=== PATIENT | female | born 1945 | race African-American/Black ===

== ENCOUNTER 2016-05-15 01:40 | Emergency (ER) | payer OTHER, BC ==
[2016-05-15 02:08] VITALS: TEMP 98.7; BMI 31.9
--- NOTE | 2016-05-15 02:33 | PDOC ---
History of Present Illness - General History Source: Patient Exam Limitations: No Limitations - History of Present Illness Initial Comments: 05/15/16 02:42 The patient is a 70 year old female with significant past medical history of hypertension who presents to the ED with fluctuating blood pressure. Patient reports despite taking the metoprolol for 1 month and clonidine for 3 days, she became concerned that her heart rate and blood pressure has been fluctuating. The patient denies fever, chills, cough, SOB, chest pain, and palpitations. The patient denies abdominal pain, nausea, vomiting, and diarrhea. Allergies: NKDA Social History: No alcohol, tobacco, or drug use reported. Past Surgical History: None reported PCP: Dr. Sekou Segovia <Ana Guerrier - Last Filed: 05/15/16 03:16> - General History Source: Patient <KevinChilo gupta - Last Filed: 05/15/16 04:36> - General Chief Complaint: Blood Pressure Problem Stated Complaint: B/P PROBLEM Time Seen by Provider: 05/15/16 02:05 Past History <Ana Guerrier - Last Filed: 05/15/16 03:16> - Past Medical History HTN: Yes - Psycho/Social/Smoking Cessation Hx Suicidal Ideation: No Smoking Status: No Smoking History: Never smoked Have you smoked in the past 12 months: No Number of Cigarettes Smoked Daily: 0 Information on smoking cessation initiated: No Hx Alcohol Use: No Drug/Substance Use Hx: No <Chilo Mckeon - Last Filed: 05/15/16 04:36> - Past Medical History Allergies/Adverse Reactions: Allergies Allergy/AdvReac Type Severity Reaction Status Date / Time No Known Allergies Allergy Verified 05/15/16 02:02 Home Medications: Ambulatory Orders Hydrochlorothiazide 12.5MG Capsule 11/02/11 Lisinopril/Hydrochlorothiazide [Lisinopril-Hctz 20-25 mg Tab] 1 each PO Review of Systems - Review of Systems Able to Perform ROS?: Yes Comments:: 05/15/16 02:43 CONSTITUTIONAL: Absent: fever, no chills, no fatigue EYES: Absent: visual changes ENT: Absent: ear pain, no sore throat CARDIOVASCULAR: +blood pressure and heart rate fluctuating Absent: chest pain, no palpitations RESPIRATORY: Absent: cough, no SOB GI: Absent: abdominal pain, no nausea, no vomiting, no constipation, no diarrhea GENITOURINARY: Absent: dysuria, no frequency, no hematuria MUSKULOSKELETAL: Absent: back pain, no arthralgia, no myalgia SKIN: Absent: rash NEURO: Absent: headache <Ana Guerrier - Last Filed: 05/15/16 03:16> *Physical Exam - Vital Signs Last Vital Signs Temp Pulse Resp BP Pulse Ox 98.7 F 75 20 175/96 100 05/15/16 02:02 05/15/16 02:02 05/15/16 02:02 05/15/16 02:02 05/15/16 02:02 - Physical Exam Comments: 05/15/16 02:43 GENERAL: Well-appearing, well-nourished. No apparent distress. HEENT: Normocephalic, atraumatic. PERRL, EOM intact. CARDIOVASCULAR: Normal S1, S2. Regular rate and rhythm. PULMONARY: Clear to auscultation bilaterally. ABDOMEN: Soft, non-distended, non-tender. EXTREMITIES: Normal ROM in all four extremities. No gross deformities. SKIN: Warm, dry. No rash NEUROLOGICAL: No focal neurological deficits. <BhumikaylinAna horner - Last Filed: 05/15/16 03:16> - Vital Signs Last Vital Signs Temp Pulse Resp BP Pulse Ox 98.7 F 75 20 175/96 100 05/15/16 02:02 05/15/16 02:02 05/15/16 02:02 05/15/16 02:02 05/15/16 02:02 <Chilo Mckeon - Last Filed: 05/15/16 04:36> Heart Score/ECG Review - ECG Impressions Comment:: 05/15/16 03:16 Sinus bradycardia with 1st degree AV block @59bpm Left axis deviation Abnormal ECG <FareedAna - Last Filed: 05/15/16 03:16> ED Treatment Course - LABORATORY CBC & Chemistry Diagram: 05/15/16 02:51 05/15/16 02:51 <FareedAna - Last Filed: 05/15/16 03:16> - LABORATORY CBC & Chemistry Diagram: 05/15/16 02:51 05/15/16 02:51 <Chilo Mckeon - Last Filed: 05/15/16 04:36> Medical Decision Making - Medical Decision Making 05/15/16 04:34 Dr. Mckeon: The scribe's documentation has been prepared under my direction and personally reviewed by me in its entirery. I confirm that the note above accurately reflects all work, treatment, procedures, and medical decision making performed by me. Pt feels better. Pt potassium was treated. Pt to follow up with her pcp for discussion of her BP medication <Chilo Mckeon - Last Filed: 05/15/16 04:36> *DC/Admit/Observation/Transfer - Attestations Scribe Attestion: 05/15/16 02:43 Documentation prepared by Ana Guerrier, acting as certified medical coder for Chilo Mckeon MD <Ana Guerrier - Last Filed: 05/15/16 03:16> - Discharge Dispostion Admit: No <Chilo Mckeon - Last Filed: 05/15/16 04:36> Diagnosis at time of Disposition: Hypertension Qualifiers: Hypertension type: essential hypertension Qualified Code(s): I10 - Essential ( primary) hypertension - Discharge Dispostion Disposition: HOME Condition at time of disposition: Stable - Referrals Referrals: Sekou Segovia MD, MD [Primary Care Provider] - - Patient Instructions Printed Discharge Instructions: How to Monitor Your Blood Pressure at Home, DI for High Blood Pressure
[2016-05-15 03:03] LABS: BASOPHIL 0.7 % (0-2.0); EOSINOPHIL 2.6 % (0-4.5); MCH 28.8 pg (25.7-33.7); MCHC 33.1 g/dl (32.0-36.0); MEAN CELL VOLUME 87.2 fl (80-96); MEAN PLT VOLUME 9.1 fl (7.5-11.1); NEUTROPHILS 43.3 % (42.8-82.8); PLATELET COUNT 186 K/MM3 (134-434); RDW 15.2 % (11.6-15.6); WHITE BLOOD COUNT 7.7 K/mm3 (4.0-10.0)
[2016-05-15 03:24] LABS: ALBUMIN 3.7 g/dl (3.4-5.0); ANION GAP 9 (8-16); BILIRUBIN,TOTAL 0.4 mg/dL (0.2-1.0); CALCIUM 8.8 mg/dL (8.5-10.1); CO2 30 mmol/L (21-32); CREATININE 0.9 mg/dL (0.55-1.02); GLUCOSE,RANDOM 94 mg/dL (74-106); SGOT/AST 10 U/L (15-37); SGPT/ALT 17 U/L (12-78); TOT PROT 6.9 g/dl (6.4-8.2)
[2016-05-15 03:26] LABS: ALK PHOS 75 U/L (45-117); TROPONIN I < 0.02 ng/ml (0.00-0.05)
[2016-05-15] MEDS ORDERED: POTASSIUM CHLORIDE TABS 20 MEQ TABLET.ER (FP) PO ONE ×4 (03:28→04:35)
[2016-05-15 04:53] VITALS: BP 164/86; PULSE 61
--- NOTE | 2016-05-15 14:15 | EKG ---
Test Reason : Blood Pressure : / mmHG Vent. Rate : 059 BPM Atrial Rate : 059 BPM P-R Int : 222 ms QRS Dur : 092 ms QT Int : 436 ms P-R-T Axes : 049 -30 018 degrees QTc Int : 431 ms SINUS BRADYCARDIA WITH 1ST DEGREE A-V BLOCK LEFT AXIS DEVIATION ABNORMAL ECG WHEN COMPARED WITH ECG OF 16-DEC-2009 22:19, NO SIGNIFICANT CHANGE WAS FOUND Confirmed by DARINEL WINTER MD ([id number]) on 05/15/2016 2:15:00 PM Referred By: Confirmed By:DARINEL WINTER MD
== END 2016-05-15 04:51 | disposition home or self-care (01) ==
LOC: JER 01:40
DX: I10 Essential (primary) hypertension (principal); E87.6 Hypokalemia
CPT/HCPCS: 36415; 80053; 82550; 84484; 85025; 93005; 93010; 99281-25

== ENCOUNTER 2016-11-10 12:17 | Observation (INO) | payer OTHER, BC ==
[2016-11-10 12:29] VITALS: BMI 30.4
[2016-11-10] MEDS ORDERED: ASPIRIN 81 MG CHEWABLE TABLETS PO ONE (12:55)
[2016-11-10] MEDS ORDERED: ASPIRIN 81 MG CHEWABLE TABLETS ONE (13:23)
[2016-11-10 13:43] LABS: BASOPHIL 0.6 % (0-2.0); EOSINOPHIL 1.9 % (0-4.5); MCH 28.9 pg (25.7-33.7); MCHC 33.2 g/dl (32.0-36.0); MEAN CELL VOLUME 87.1 fl (80-96); MEAN PLT VOLUME 8.8 fl (7.5-11.1); NEUTROPHILS 47.6 % (42.8-82.8); PLATELET COUNT 201 K/MM3 (134-434); RDW 15.4 % (11.6-15.6); WHITE BLOOD COUNT 6.2 K/mm3 (4.0-10.0)
[2016-11-10 14:04] LABS: INR 1.02 (0.82-1.09); PROTHROMBIN TIME (PATIENT) 11.2 SEC (9.98-11.88)
[2016-11-10 14:18] LABS: ALBUMIN 3.9 g/dl (3.4-5.0); ANION GAP 8 (8-16); CO2 27 mmol/L (21-32); CREATININE 0.8 mg/dL (0.55-1.02); GLUCOSE,RANDOM 94 mg/dL (74-106); SGOT/AST 17 U/L (15-37); SGPT/ALT 19 U/L (12-78)
[2016-11-10 14:21] LABS: ALK PHOS 87 U/L (45-117); BILIRUBIN,TOTAL 0.7 mg/dL (0.2-1.0); TOT PROT 7.4 g/dl (6.4-8.2); TROPONIN I < 0.02 ng/ml (0.00-0.05)
--- NOTE | 2016-11-10 14:35 | PDOC ---
History of Present Illness - General Chief Complaint: Blood Pressure Problem Stated Complaint: HIGH BP,DIZZINESS,ARM NUMNESS Time Seen by Provider: 11/10/16 12:33 History Source: Patient Exam Limitations: No Limitations - History of Present Illness Initial Comments: 11/10/16 14:23 Patient is a 71F with history of hypertension here today complaining of chest pain and hypertension as measured at home. She reports chest pain at rest yesterday evening, which was nonpleuritic and went away at rest. The pain resolved at rest. The pain was intermittent, with several episodes getting worse each time until presentation today. The pain radiated to her jaw, arm and fingers. She denies shortness of breath, nausea, vomiting, and diaphoresis. She reports that she's currently chest pain free. Past History - Past Medical History Allergies/Adverse Reactions: Allergies Allergy/AdvReac Type Severity Reaction Status Date / Time No Known Allergies Allergy Verified 11/10/16 12:22 Home Medications: Ambulatory Orders Lisinopril [Prinivil] 40 mg PO DAILY 05/15/16 Metoprolol Succinate [Toprol Xl -] 200 mg PO DAILY 05/15/16 Nifedipine [Procardia Xl] 30 mg PO DAILY 11/10/16 Omeprazole Magnesium [Prilosec] 40 mg PO DAILY 11/10/16 Potassium Chloride 10 meq PO DAILY 11/10/16 Spironolactone 25 mg PO DAILY 11/10/16 HTN: Yes - Psycho/Social/Smoking Cessation Hx Suicidal Ideation: No Smoking Status: No Smoking History: Never smoked Have you smoked in the past 12 months: No Number of Cigarettes Smoked Daily: 0 Hx Alcohol Use: No Drug/Substance Use Hx: No Review of Systems - Review of Systems Constitutional: No: Chills, Fever HEENTM: Yes: Mouth Pain. No: Eye Pain, Blurred Vision Respiratory: No: Cough, Orthopnea, Shortness of Breath Cardiac (ROS): Yes: Chest Pain. No: Edema, Irregular Heart Rate ABD/GI: No: Constipated, Diarrhea, Nausea, Vomiting : No: Burning, Dysuria Musculoskeletal: No: Back Pain, Muscle Pain Neurological: Yes: Numbness (numbness in left hand with pain). No: Headache Hematologic/Lymphatic: No: Anemia, Blood Clots *Physical Exam - Vital Signs Last Vital Signs Temp Pulse Resp BP Pulse Ox 98.1 F 68 19 184/101 100 11/10/16 12:22 11/10/16 12:22 11/10/16 12:22 11/10/16 12:22 11/10/16 12:22 - Physical Exam Comments: 11/10/16 16:29 Gen: Well nourished, in no acute distress Lungs: Clear to auscultation bilaterally, normal work of breathing CV: Regular rate and rhythm, no murmurs rubs or gallops Ext: 2+ pulses in both lower extremities, no pitting edema Neuro: Alert, oriented, no focal neuro deficits Abd: Soft, nontender, normal bowel sounds HEENT: Atraumatic, normocephalic Heart Score/ECG Review - History History: Highly suspicious - Electrocardiogram EKG: Normal - Age Age: >/= 65 - Risk Factors Risk Factors Heart Score: Yes Hx Hypertension, Yes Hx Obesity Based on the list above the patient has:: 1-2 risk factors - Troponin Troponin: </= normal limit - Score Heart Score - Total: 5 - ECG Intrepretation Comment:: 11/10/16 16:31 Regular rate, regular rhythm, normal axis, no ST elevation, no T wave abnormalities ED Treatment Course - LABORATORY CBC & Chemistry Diagram: 11/10/16 13:33 11/10/16 13:33 - ADDITIONAL ORDERS Additional order review: Laboratory Results 11/10/16 11/10/16 13:33 13:33 INR 1.02 Sodium 139 Potassium 4.0 D Chloride 104 Carbon Dioxide 27 Anion Gap 8 BUN 25 H D Creatinine 0.8 Creat Clearance w eGFR > 60 Random Glucose 94 Calcium 10.0 Total Bilirubin 0.7 D AST 17 D ALT 19 Alkaline Phosphatase 87 Creatine Kinase 83 Troponin I < 0.02 Total Protein 7.4 Albumin 3.9 - RADIOLOGY Radiology Studies Ordered: Category Date Time Status CHEST X-RAY PORTABLE* [RAD] Stat Radiology 11/10/16 12:55 Completed - Medications Given in the ED: ED Medications Discontinued Medications Generic Name Dose Route Start Last Admin Trade Name Freq PRN Reason Stop Dose Admin Aspirin 162 mg 11/10/16 12:55 11/10/16 13:24 Asa - PO 11/10/16 12:56 162 mg ONCE ONE Administration Medical Decision Making - Medical Decision Making 11/10/16 16:31 71F with history of hypertension here today complaining of high blood pressure and chest pain. Hypertensive to 185 systolic, but otherwise stable and normal. Differential includes, but is not limited to: ACS, unstable angina, and pneumothorax. Will order CBC, CMP, CXR, and troponin. Labs within normal limits, chest x-ray clear. Story is concerning for possible ischemic event. With risk factors and age HEART score is 5. PCP consulted for admission. 11/10/16 18:41 PCP admits to hospitalist service. Admitted to medicine. *DC/Admit/Observation/Transfer Diagnosis at time of Disposition: Chest pain Qualifiers: Chest pain type: unspecified Qualified Code(s): R07.9 - Chest pain, unspecified - Discharge Dispostion Condition at time of disposition: Stable Admit: Yes - Referrals - Attestations Physician Attestion: 11/10/16 17:44 I, Dr. Sekou Daniels, attest that this document has been prepared under my direction and personally reviewed by me in its entirety. I further attest, that it accurately reflects all work, treatment, procedures and medical decision -making performed by me.
[2016-11-10] MEDS ORDERED: NITROGLYCERIN SUBLINGUAL 1/150 0.4 MG TAB SL ONE (15:12)
--- NOTE | 2016-11-10 18:02 | PDOC ---
Attending Attestation - Resident Resident Name: Sekou Daniels - ED Attending Attestation I have performed the following: I have examined & evaluated the patient, The case was reviewed & discussed with the resident, I agree w/resident's findings & plan, Exceptions are as noted <Matt Bhandari - Last Filed: 11/10/16 18:01> - HPI HPI: 11/10/16 18:02 The patient is a 71 year old female with no PMHx who presents to the ED with chest pain that radiates to her tongue, shoulder and jaw. She reports no current chest pain, but reports tongue pain. She denies SOB. She measured her BP today and she states it was above 240, so she came to the ED. On arrival, it was 184/101. - Physicial Exam PE: 11/10/16 18:02 I agree with the residents physical exam. <Ariana Lemus - Last Filed: 11/10/16 18:02>
[2016-11-10] MEDS ORDERED: LISINOPRIL 20 MG TABLET (FP) PO ONE (18:16)
--- NOTE | 2016-11-10 18:26 | HP ---
CHIEF COMPLAINT:Chest pain PCP:Sekou Segovia HISTORY OF PRESENT ILLNESS: 71F with history of HTN, poorly controlled, presents to the ED with chest pain which happened last night before bed. Per ther patient she was about to go to bed and she felt a pressure like pain on the left which went to her left shoulder and left neck. When she woke up she was no longer symptomatic. When she presented to the ED she was also not in pain any longer. She states that her BP was high at home SBP was "200 something" which prompted her to come to the ED. She states the pain is similar to when she gets "gassy pains". She states she had an exerc ise stress test where she ran on treadmill 8 years ago and it was negative. She denies a cardiac work up ever since. She Denies nausea vomiting fevers chills shortness of breath GI or urinary symptoms. She reports frequent belching and 2 days ago states she had a "fishy taste" in her mouth which has since resolved. SHe states she was recently started on procardia a few days ago but never started it because her blood pressure was always low and in the 60's-80's. She was also started on a "potassium pill" because her potassium was too low. ER course was notable for: (1)Labs CXR (2)Nifedepine (3) Aspirin Recent Travel:Denies PAST MEDICAL HISTORY: HTN GERD chronic hypokalemia PAST SURGICAL HISTORY:Denies Social History: Smoking:Denies Alcohol:Denies Drugs: Denies Family History:Denies Allergies No Known Allergies Allergy (Verified 11/10/16 12:22) HOME MEDICATIONS: Home Medications Medication Instructions Recorded Lisinopril [Prinivil] 40 mg PO DAILY 05/15/16 Metoprolol Succinate [Toprol Xl -] 200 mg PO DAILY 05/15/16 Nifedipine [Procardia Xl] 30 mg PO DAILY 11/10/16 Omeprazole Magnesium [Prilosec] 40 mg PO DAILY 11/10/16 Potassium Chloride 10 meq PO DAILY 11/10/16 Spironolactone 25 mg PO DAILY 11/10/16 REVIEW OF SYSTEMS CONSTITUTIONAL: Absent: fever, chills, diaphoresis, generalized weakness, malaise, loss of appetite, weight change HEENT: Absent: rhinorrhea, nasal congestion, throat pain, throat swelling, difficulty swallowing, mouth swelling, ear pain, eye pain, visual changes Present: Fishy taste in mouth CARDIOVASCULAR: Absent: syncope, palpitations, irregular heart rate, lightheadedness, peripheral edema Present: Chest Pain RESPIRATORY: Absent: cough, shortness of breath, dyspnea with exertion, orthopnea, wheezing, stridor, hemoptysis GASTROINTESTINAL: Absent: abdominal pain, abdominal distension, nausea, vomiting, diarrhea, constipation, melena, hematochezia GENITOURINARY: Absent: dysuria, frequency, urgency, hesitancy, hematuria, flank pain, genital pain MUSCULOSKELETAL: Absent: myalgia, arthralgia, joint swelling, back pain, neck pain SKIN: Absent: rash, itching, pallor HEMATOLOGIC/IMMUNOLOGIC: Absent: easy bleeding, easy bruising, lymphadenopathy, frequent infections ENDOCRINE: Absent: unexplained weight gain, unexplained weight loss, heat intolerance, cold intolerance NEUROLOGIC: Absent: headache, focal weakness or paresthesias, dizziness, unsteady gait, seizure, mental status changes, bladder or bowel incontinence Present: occasional numbness of tongue PSYCHIATRIC: Absent: anxiety, depression, suicidal or homicidal ideation, hallucinations. PHYSICAL EXAMINATION Vital Signs - 24 hr 11/10/16 18:03 Pulse Rate [ 63 Radial] Respiratory 18 Rate Blood Pressure 172/103 [Right Arm] O2 Sat by Pulse 100 Oximetry (%) GENERAL: Awake, alert, and fully oriented, in no acute distress. HEAD: Normal with no signs of trauma. EYES: Pupils equal, round and reactive to light, extraocular movements intact, sclera anicteric, conjunctiva clear. No lid lag. EARS, NOSE, THROAT: Moist mucous membranes. NECK: Normal range of motion, supple without JVD LUNGS: Breath sounds equal, clear to auscultation bilaterally. No wheezes, and no crackles. No accessory muscle use. HEART: Regular rate and rhythm, normal S1 and S2 without murmur, rub or gallop. ABDOMEN: Soft, nontender, not distended, normoactive bowel sounds, no guarding, no rebound MUSCULOSKELETAL: No CVA tenderness. UPPER EXTREMITIES: warm, well-perfused. No peripheral edema. LOWER EXTREMITIES: 2warm, well-perfused. No calf tenderness. No peripheral edema. NEUROLOGICAL: Cranial nerves II-XII intact. Normal speech. PSYCHIATRIC: Cooperative. Good eye contact. Appropriate mood and affect. SKIN: Warm, dry, normal turgor EKG: NSR CXR: Clear HEART score: 5 ASSESSMENT/PLAN: 71F with history of HTN and GERD presents to the ED with chest pain admitted for cardiac work up and to rule out ACS. Chest pain-atypical - R/O ACS low suspicion for ACS given history and symtpoms. possibly GERD vs hypertensive emergency Admit to telemetry cardiology consult ECHO Trend troponins so far first set negative PPI already received aspirin in ED will do TFTs Lipid panel may need statin may need to be started on aspirin hypertensive urgency vs emergency: could be emergency if chest pain is secondary to elevated BP admit to telemetry for continuos cardiac monitoring given nitro in ED will give STAT dose of lisinopril 40mg restart home meds metoprolol nifedepine lisinopril and spironolactone adjust meds prior to discharge PRN Chronic hypokalemia: Continue potassium supplementation PO Trend potassium GERD: could be the cause of her symptoms Change prilosec to protonix PPx: Heparin subq/SCDs/early ambulation protonix PO no PT consult needed at this time FEN: no IVF needed no electrolyte issues continue potassium supplementation and trend sodium controlled diet Case discussed with attending. Visit type - Emergency Visit Emergency Visit: Yes ED Registration Date: 11/10/16 Care time: The patient presented to the Emergency Department on the above date and was hospitalized for further evaluation of their emergent condition. - New Patient This patient is new to me today: Yes Date on this admission: 11/10/16 - Critical Care Critical Care patient: No
[2016-11-10] MEDS ORDERED: LISINOPRIL 20 MG TABLET (FP) ONE (18:41)
[2016-11-10] MEDS ORDERED: PANTOPRAZOLE 40 MG TABLET (FP) ONE (18:41)
--- NOTE | 2016-11-10 18:43 | PN ---
Teaching Attending Note Name of Resident: Huey Morris ATTENDING PHYSICIAN STATEMENT I saw and evaluated the patient. I reviewed the resident's note and discussed the case with the resident. I agree with the resident's findings and plan as documented. SUBJECTIVE:71yo F came to the ER for elevated BP. states she takes her BP daily and it was systolic 200's. pt had no symptoms at that time. she states last night when she was going to bed had some L sided CP, heavy pressure feeling radiating to the L shoulder. pain was bearable and fell asleep and woke up asymptomatic. reports frequent belching this AM and often waking in the AM with "fish" like taste in her mouth. pt was recently started on procardia by her primary but states she never took it because her home readings of her BP were in the 90's. states she had a treadmill stress test 9 years ago for routine screening which was negative for her. denies smoking history. denies family hx of cardiac disease or sudden OBJECTIVE: Last Vital Signs Temp Pulse Resp BP Pulse Ox 98.1 F 63 18 172/103 100 11/10/16 12:22 11/10/16 18:03 11/10/16 18:03 11/10/16 18:03 11/10/16 18:03 General NAD CV S1 S2 RRR no murmur/rub/gallop no chest wall tenderness Lungs CTA B/L no wheezing/rales/rhonchi Abdomen soft NT/ND Extremities no pedal edema ASSESSMENT AND PLAN: 71yo F with PMH HTN, GERD and chronic hypokalemia who presented to the ER with HTN urgency 1. HTN urgency- tele admission. continuous cardiac cath lab technologist. will give lisinopril 40mg now and re-start home medications. check echo 2. Atypical CP- likely GERD like symptoms, however has high heart score. first set of cardiac markers negative. will trend Q6H. start asa. (already received 325mg in ER will cont 81mg tomorrow). cardio consult. will likely benefit from stress test but can likely be done as outpatient. switch prilosec to protonix 3. Chronic hypokalemia- normal at this time. cont chronic supplementation 4. DVT ppx- EAM
[2016-11-10] MEDS: PANTOPRAZOLE 40 MG TABLET (FP) PO SCH (18:51)
[2016-11-10 20:05] LABS: TROPONIN I < 0.02 ng/ml (0.00-0.05)
[2016-11-10 20:45] LABS: CHOLESTEROL 197 mg/dL (50-200); LDL CHOLESTEROL (ONLY SJRH) 98 mg/dL (5-100)
[2016-11-10] MEDS: HEPARIN NA (PORCINE) 5,000 UNITS/ML 1ML VIAL SQ SCH (23:06)
[2016-11-10] MEDS: NIFEdipine E.R. 30 MG TABLET (FP) PO SCH (23:06)
[2016-11-11 02:27] LABS: TROPONIN I < 0.02 ng/ml (0.00-0.05)
[2016-11-11] MEDS: HEPARIN NA (PORCINE) 5,000 UNITS/ML 1ML VIAL SQ SCH ×2 (06:56→13:20)
[2016-11-11 08:04] LABS: MCH 29.6 pg (25.7-33.7); MCHC 34.2 g/dl (32.0-36.0); MEAN CELL VOLUME 86.6 fl (80-96); MEAN PLT VOLUME 8.7 fl (7.5-11.1); PLATELET COUNT 184 K/MM3 (134-434); RDW 15.5 % (11.6-15.6); WHITE BLOOD COUNT 6.9 K/mm3 (4.0-10.0)
[2016-11-11 08:09] LABS: ANION GAP 7 (8-16); CALCIUM 9.4 mg/dL (8.5-10.1); CO2 26 mmol/L (21-32); CREATININE 0.6 mg/dL (0.55-1.02); GLUCOSE,RANDOM 82 mg/dL (74-106); MAGNESIUM 1.9 mg/dL (1.8-2.4); PHOSPHOROUS 2.8 mg/dL (2.5-4.9)
[2016-11-11] MEDS: PANTOPRAZOLE 40 MG TABLET (FP) PO SCH (09:07)
[2016-11-11] MEDS ORDERED: METOPROLOL SUCCINATE 100 MG TAB.SR.24H (FP) PO SCH (10:00)
[2016-11-11] MEDS ORDERED: NIFEdipine E.R. 30 MG TABLET (FP) PO SCH (10:00)
[2016-11-11] MEDS ORDERED: POTASSIUM CHLORIDE TABS 10 MEQ TABLET.ER (FP) PO SCH (10:00)
[2016-11-11] MEDS ORDERED: SPIRONOLACTONE 25 MG TABLET (FP) PO SCH (10:00)
[2016-11-11] MEDS ORDERED: LISINOPRIL 20 MG TABLET (FP) PO SCH (10:00)
[2016-11-11] MEDS ORDERED: ASPIRIN COATED 81 MG TABLET.EC PO SCH (10:00)
--- NOTE | 2016-11-11 11:06 | CON.CARD ---
Consult Consult Specialty:: Cardiology Referred by:: Hospitalist service Reason for Consultation:: Cardiac evaluation - History of Present Illness Chief Complaint: Chest pain History of Present Illness: Patient is a 71 year old female with underlying history of hypertension who presents with left sided chest discomfort. She sees Dr. Sekou Segovia (PMD) who prescribed Protonix last week, but she did not take it due to low blood pressure. She states that her blood pressure ashley up to 200's along with chest discomfort also radiating to arm and jaw. Initial cardiac enzyme was negative. She was given her medications and now has normal pressure. She remains asymptomatic at the moment. She denies shortness of breath or palpitations. She denies paroxysmal nocturnal dyspnea or orthopnea. She denies fever or chills. She denies headache or lightheadedness at this time. Cardiology consultation was called for further evaluation. - History Source History Provided By: Patient, Medical Record Limitations to Obtaining History: No Limitations - Past Medical History Cardio/Vascular: Yes: HTN - Alcohol/Substance Use Hx Alcohol Use: No History of Substance Use: reports: None - Smoking History Smoking history: Never smoked Have you smoked in the past 12 months: No Aproximately how many cigarettes per day: 0 Home Medications - Allergies Allergies/Adverse Reactions: Allergies Allergy/AdvReac Type Severity Reaction Status Date / Time No Known Allergies Allergy Verified 11/10/16 12:22 - Home Medications Home Medications: Ambulatory Orders Lisinopril [Prinivil] 40 mg PO DAILY 05/15/16 Metoprolol Succinate [Toprol Xl -] 200 mg PO DAILY 05/15/16 Nifedipine [Procardia Xl] 30 mg PO DAILY 11/10/16 Omeprazole Magnesium [Prilosec] 40 mg PO DAILY 11/10/16 Potassium Chloride 10 meq PO DAILY 11/10/16 Spironolactone 25 mg PO DAILY 11/10/16 Family Disease History - Family Disease History Family Disease History: Other: Mother (stroke) Review of Systems - Review of Systems Constitutional: denies: Chills, Fever Cardiovascular: reports: Chest Pain. denies: Palpitations, Shortness of Breath Respiratory: denies: Cough, Hemoptysis, Orthopnea, PND, SOB, SOB on Exertion Gastrointestinal: denies: Abdominal Pain, Constipation, Diarrhea, Melena, Nausea , Rectal Bleeding, Vomiting Neurological: reports: No Symptoms. denies: Dizziness, Headache, Seizure, Syncope Vital Signs: Vital Signs Temperature 98.2 F 11/11/16 09:00 Pulse Rate 66 11/11/16 09:00 Respiratory Rate 14 11/11/16 09:00 Blood Pressure 130/72 11/11/16 09:00 O2 Sat by Pulse Oximetry (%) 96 11/10/16 23:00 HENT: Yes: Atraumatic Neck: Yes: Supple Respiratory: Yes: Regular, CTA Bilaterally Gastrointestinal: Yes: Normal Bowel Sounds, Soft. No: Tenderness Cardiovascular: Yes: Regular Rate and Rhythm JVD: No Carotid Bruit: No PMI: Non-Displaced Heart Sounds: Yes: S1, S2 Murmur: No: Systolic Murmur, Diastolic Murmur Edema: No - Other Data Labs, Other Data: CBC, BMP 11/11/16 05:35 11/11/16 05:35 INR, PTT INR 1.02 (0.82-1.09) 11/10/16 13:33 Troponin, BNP Abnormal Lab Results 11/10/16 11/10/16 11/10/16 13:33 13:33 20:22 Monocytes % 11.9 H Chloride Anion Gap BUN 25 H D HDL Cholesterol 86 H 11/11/16 05:35 Monocytes % Chloride 108 H Anion Gap 7 L BUN HDL Cholesterol Laboratory Results - last 24 hr 11/10/16 11/10/16 11/10/16 13:33 13:33 13:33 WBC 6.2 RBC 4.39 Hgb 12.7 Hct 38.2 MCV 87.1 MCH 28.9 MCHC 33.2 RDW 15.4 Plt Count 201 MPV 8.8 Neutrophils % 47.6 Lymphocytes % 38.0 Monocytes % 11.9 H Eosinophils % 1.9 Basophils % 0.6 INR 1.02 Sodium 139 Potassium 4.0 D Chloride 104 Carbon Dioxide 27 Anion Gap 8 BUN 25 H D Creatinine 0.8 Creat Clearance w eGFR > 60 Random Glucose 94 Calcium 10.0 Phosphorus Magnesium Total Bilirubin 0.7 D AST 17 D ALT 19 Alkaline Phosphatase 87 Creatine Kinase 83 Troponin I < 0.02 Total Protein 7.4 Albumin 3.9 Triglycerides Cholesterol Total LDL Cholesterol HDL Cholesterol TSH 11/10/16 11/10/16 11/10/16 19:21 19:21 20:22 WBC RBC Hgb Hct MCV MCH MCHC RDW Plt Count MPV Neutrophils % Lymphocytes % Monocytes % Eosinophils % Basophils % INR Sodium Potassium Chloride Carbon Dioxide Anion Gap BUN Creatinine Creat Clearance w eGFR Random Glucose Calcium Phosphorus Magnesium Total Bilirubin AST ALT Alkaline Phosphatase Creatine Kinase 72 Troponin I < 0.02 Total Protein Albumin Triglycerides 43 Cholesterol 197 Total LDL Cholesterol 98 HDL Cholesterol 86 H TSH 0.37 11/11/16 11/11/16 11/11/16 01:20 05:35 05:35 WBC 6.9 RBC 4.03 Hgb 11.9 Hct 35.0 MCV 86.6 MCH 29.6 MCHC 34.2 RDW 15.5 Plt Count 184 MPV 8.7 Neutrophils % Lymphocytes % Monocytes % Eosinophils % Basophils % INR Sodium 141 Potassium 3.8 Chloride 108 H Carbon Dioxide 26 Anion Gap 7 L BUN 15 D Creatinine 0.6 D Creat Clearance w eGFR Random Glucose 82 Calcium 9.4 Phosphorus 2.8 Magnesium 1.9 Total Bilirubin AST ALT Alkaline Phosphatase Creatine Kinase 70 Troponin I < 0.02 Total Protein Albumin Triglycerides Cholesterol Total LDL Cholesterol HDL Cholesterol TSH 11/10/16 11/11/16 19:21 01:20 Troponin I < 0.02 < 0.02 Normal sinus rhythm with no ST-T abnormality Echo: Pending Imaging - Results Chest X-ray: Report Reviewed (Unremarkable) EKG: Report Reviewed Problem List - Problems (1) Chest pain Code(s): R07.9 - CHEST PAIN, UNSPECIFIED Qualifiers: Chest pain type: unspecified Qualified Code(s): R07.9 - Chest pain, unspecified (2) Hypertension Code(s): I10 - ESSENTIAL (PRIMARY) HYPERTENSION Qualifiers: Hypertension type: essential hypertension Qualified Code(s): I10 - Essential (primary) hypertension Assessment/Plan 1. Chest pain syndrome - atypical with episode of hypertensive urgency 2. Hypertension PLAN: 1. Serial cardiac enzymes are negative times 2 sets 2. Transthoracic echocardiography to assess LV/RV and valvular function 3. Continue current cardiac medications including Metoprolol ER, Procardia XL and Lisinopril 4. Continue ASA 5. Continue Spironolactone until further instruction 6. Patient probably will need stress testing, perhaps stress echocardiography, but can be done as outpatient. Further plans are to follow Oscar Madrigal MD
--- NOTE | 2016-11-11 11:55 | PN ---
Teaching Attending Note Name of Resident: Artur Griffith ATTENDING PHYSICIAN STATEMENT I saw and evaluated the patient. I reviewed the resident's note and discussed the case with the resident. I agree with the resident's findings and plan as documented. SUBJECTIVE:currently asymptomatic. no recurrent CP. denies SOB,fver, chills, CORONADO , blurred vision OBJECTIVE: Last Vital Signs Temp Pulse Resp BP Pulse Ox 98.2 F 66 14 130/72 96 11/11/16 09:00 11/11/16 09:00 11/11/16 09:00 11/11/16 09:00 11/11/16 09:00 General NAD CV S1 S2 RRR no murmur/rub/gallop no chest wall tenderness Lungs CTA B/L no wheezing/rales/rhonchi Abdomen soft NT/ND Extremities no pedal edema ASSESSMENT AND PLAN: 71yo F with PMH HTN, GERD and chronic hypokalemia who presented to the ER with HTN urgency 1. HTN urgency-improved. now on home medications. echo pending. counseled on importance on medication compliance 2. Atypical CP- likely GERD like symptoms, cardiac enzymes neg x3. 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 started on asa this admission. cardio consult. plan for stress test as outpatient. cont ppi 3. Chronic hypokalemia- normal at this time. cont chronic supplementation 4. DVT ppx- EAM 5. d/c home today pending results of echo
--- NOTE | 2016-11-11 12:11 | PN ---
Physical Exam: SUBJECTIVE: Patient seen and examined. Said she feels much better than yesterday. She said the bad taste in her mouth went away. Denies chest pain, SOB , headaches, dizziness. OBJECTIVE: Vital Signs Period Temp Pulse Resp BP Sys/Wheeler Pulse Ox Last 24 Hr 98.2 F-98.4 F 61-66 14-20 130-185/72-104 96-100 GENERAL: The patient is awake, alert, and fully oriented, in no acute distress. HEAD: Normal with no signs of trauma. EYES: PERRL, extraocular movements intact, sclera anicteric, conjunctiva clear. No ptosis. LUNGS: Breath sounds equal, clear to auscultation bilaterally, no wheezes, no crackles, no accessory muscle use. HEART: Regular rate and rhythm, S1, S2 without murmur, rub or gallop. ABDOMEN: Soft, nontender, nondistended, normoactive bowel sounds, no guarding, no rebound, no hepatosplenomegaly, no masses. EXTREMITIES: 2+ right radial pulse, warm, well-perfused, no edema. PSYCH: Normal mood, normal affect. SKIN: Warm, dry, normal turgor, no rashes or lesions noted Laboratory Results - last 24 hr 11/10/16 11/10/16 11/10/16 19:21 19:21 20:22 WBC RBC Hgb Hct MCV MCH MCHC RDW Plt Count MPV Sodium Potassium Chloride Carbon Dioxide Anion Gap BUN Creatinine Random Glucose Calcium Phosphorus Magnesium Creatine Kinase 72 Troponin I < 0.02 Triglycerides 43 Cholesterol 197 Total LDL Cholesterol 98 HDL Cholesterol 86 H TSH 0.37 11/11/16 11/11/16 11/11/16 01:20 05:35 05:35 WBC 6.9 RBC 4.03 Hgb 11.9 Hct 35.0 MCV 86.6 MCH 29.6 MCHC 34.2 RDW 15.5 Plt Count 184 MPV 8.7 Sodium 141 Potassium 3.8 Chloride 108 H Carbon Dioxide 26 Anion Gap 7 L BUN 15 D Creatinine 0.6 D Random Glucose 82 Calcium 9.4 Phosphorus 2.8 Magnesium 1.9 Creatine Kinase 70 Troponin I < 0.02 Triglycerides Cholesterol Total LDL Cholesterol HDL Cholesterol TSH Active Medications Generic Name Dose Route Start Last Admin Trade Name Freq PRN Reason Stop Dose Admin Aspirin 81 mg 11/11/16 10:00 11/11/16 09:07 Ecotrin - PO 81 mg DAILY JOHN Administration Heparin Sodium (Porcine) 5,000 unit 11/10/16 22:00 11/11/16 06:56 Heparin - SQ Not Given TID JOHN Lisinopril 40 mg 11/11/16 10:00 11/11/16 09:07 Prinivil PO 40 mg DAILY JOHN Administration Metoprolol Succinate 200 mg 11/11/16 10:00 11/11/16 09:06 Toprol Xl - PO 200 mg DAILY JOHN Administration Nifedipine 30 mg 11/10/16 23:00 11/10/16 23:06 Procardia Xl - PO 30 mg DAILY JOHN Administration Pantoprazole Sodium 40 mg 11/10/16 18:30 11/11/16 09:07 Protonix - PO 40 mg DAILY JOHN Administration Potassium Chloride 10 meq 11/11/16 10:00 11/11/16 09:07 K-Dur - PO Not Given DAILY JOHN Spironolactone 25 mg 11/11/16 10:00 11/11/16 09:07 Aldactone - PO 25 mg DAILY JOHN Administration ASSESSMENT/PLAN: 76 year old F with a PMH of HTN, GERD, and chronic hypokalemia was admitted to telemetry for hypertensive urgency. Plan: #Hyptertensive Urgency -resolved Continue: Aldactone 25mg PO daily Lisinopril 40mg daily Nifedipine 30mg daily Metoprolol succinate 200mg daily Cardiology consult # Atypical Chest Pain Low suspicion for ACS Troponin x 3 negative Thyroid function and lipid profile both WNL Echo Results pending Continue Aspirin 81mg PO As per cardiology recommend stress testing outpatient. PPI started for possible GERD as cause for atypical chest pain. #Chronic Hypokalemia Continue Potassium chloride 10meq daily #GERD -Protonix 40mg PO daily #Dvt prophylaxis Continue Heparin 5000 sq TID Visit type - Emergency Visit Emergency Visit: No - New Patient This patient is new to me today: Yes Date on this admission: 11/11/16 - Critical Care Critical Care patient: No
[2016-11-11] MEDS: NIFEdipine E.R. 30 MG TABLET (FP) PO SCH (16:46)
--- NOTE | 2016-11-11 17:15 | DS ---
Physical Exam: SUBJECTIVE: Patient seen and examined. Said she feels much better than yesterday. She said the bad taste in her mouth went away. Denies chest pain, SOB , headaches, dizziness. OBJECTIVE: Vital Signs Period Temp Pulse Resp BP Sys/Wheeler Pulse Ox Last 24 Hr 98.2 F-98.4 F 61-66 14-20 130-185/72-104 96-100 Selected Entries 11/10/16 11/10/16 11/10/16 12:22 15:14 18:03 Blood Pressure 184/101 Blood Pressure 185/86 172/103 [Right Arm] 11/10/16 11/10/16 11/11/16 20:01 22:00 02:00 Blood Pressure 185/100 145/85 Blood Pressure 171/98 [Right Arm] 11/11/16 11/11/16 11/11/16 05:54 09:00 14:00 Blood Pressure 138/76 130/72 112/70 Blood Pressure [Right Arm] GENERAL: The patient is awake, alert, and fully oriented, in no acute distress. HEAD: Normal with no signs of trauma. EYES: PERRL, extraocular movements intact, sclera anicteric, conjunctiva clear. No ptosis. LUNGS: Breath sounds equal, clear to auscultation bilaterally, no wheezes, no crackles, no accessory muscle use. HEART: Regular rate and rhythm, S1, S2 without murmur, rub or gallop. ABDOMEN: Soft, nontender, nondistended, normoactive bowel sounds, no guarding, no rebound, no hepatosplenomegaly, no masses. EXTREMITIES: 2+ right radial pulse, warm, well-perfused, no edema. PSYCH: Normal mood, normal affect. SKIN: Warm, dry, normal turgor, no rashes or lesions noted LABS Laboratory Tests 11/10/16 11/10/16 11/10/16 13:33 13:33 13:33 WBC 6.2 Hgb 12.7 Hct 38.2 Plt Count 201 INR 1.02 Sodium 139 Potassium 4.0 D BUN 25 H D Creatinine 0.8 Phosphorus Magnesium Total Bilirubin 0.7 D AST 17 D ALT 19 Alkaline Phosphatase 87 Troponin I < 0.02 Triglycerides Cholesterol Total LDL Cholesterol HDL Cholesterol TSH 11/10/16 11/10/16 11/10/16 19:21 19:21 20:22 WBC Hgb Hct Plt Count INR Sodium Potassium BUN Creatinine Phosphorus Magnesium Total Bilirubin AST ALT Alkaline Phosphatase Troponin I < 0.02 Triglycerides 43 Cholesterol 197 Total LDL Cholesterol 98 HDL Cholesterol 86 H TSH 0.37 11/11/16 11/11/16 11/11/16 01:20 05:35 05:35 WBC 6.9 Hgb 11.9 Hct 35.0 Plt Count 184 INR Sodium 141 Potassium 3.8 BUN 15 D Creatinine 0.6 D Phosphorus 2.8 Magnesium 1.9 Total Bilirubin AST ALT Alkaline Phosphatase Troponin I < 0.02 Triglycerides Cholesterol Total LDL Cholesterol HDL Cholesterol TSH HOSPITAL COURSE: Date of Admission:11/11/16 Date of Discharge: 11/11/16 76 year old F with a PMH of HTN, GERD, and chronic hypokalemia was admitted to telemetry for hypertensive urgency. Troponins x 3 were negative. Blood pressure improved. Patient was restarted on home medications. Echo was completed: -No pericardial effusion -The right ventricular is normal size -Mild aortic root dilatation -There is moderate to severe tricuspid regurgitation -Moderate aortic regurgitation Patient was recommended to start Aspirin 81mg at home. Minutes to complete discharge: 30 Discharge Summary Reason For Visit: CHEST PAIN Current Active Problems Chest pain (Acute) Condition: Good - Instructions Diet, Activity, Other Instructions: You were admitted to the hospital for chest pain and high blood pressure. Your blood pressure improved during this hospitalization. Please take your home medications as prescribed. We recommend you follow-up with your primary care physician Dr. Segovia and a final expense agent, Dr. Madrigal in a week to review your medications and hospitalization. You should discuss having a stress test to evaluate your heart. Please start taking aspirin 81mg 1 tablet daily. If you have any chest pain, difficulty breathing or any new symptoms please return to the hospital. Referrals: Oscar Madrigal MD [Staff Physician] - Sekou Segovia MD, MD [Primary Care Provider] - Disposition: HOME - Home Medications Comprehensive Discharge Medication List: Ambulatory Orders Lisinopril [Prinivil] 40 mg PO DAILY 05/15/16 Metoprolol Succinate [Toprol XL -] 200 mg PO DAILY 05/15/16 Nifedipine [Procardia Xl] 30 mg PO DAILY 11/10/16 Omeprazole Magnesium [Prilosec] 40 mg PO DAILY 11/10/16 Potassium Chloride 10 meq PO DAILY 11/10/16 Spironolactone 25 mg PO DAILY 11/10/16 This patient is new to me today: Yes Date on this admission: 11/11/16 Emergency Visit: No Critical Care patient: No - Discharge Referral Referred to [facility] No
--- NOTE | 2016-11-11 20:51 | EKG ---
Test Reason : Blood Pressure : / mmHG Vent. Rate : 060 BPM Atrial Rate : 060 BPM P-R Int : 202 ms QRS Dur : 086 ms QT Int : 404 ms P-R-T Axes : 034 -27 001 degrees QTc Int : 404 ms NORMAL SINUS RHYTHM VOLTAGE CRITERIA FOR LEFT VENTRICULAR HYPERTROPHY ABNORMAL ECG WHEN COMPARED WITH ECG OF 15-MAY-2016 02:49, NO SIGNIFICANT CHANGE WAS FOUND REPEAT EKG IF CLINICALLY INDICATED Confirmed by ANA MURCIA MD ([id number] on 11/11/2016 8:51:07 PM Referred By: Confirmed By:ANA MURCIA MD
[2016-11-11 21:50] VITALS: BP 120/77; PULSE 64; TEMP 98
== END 2016-11-11 18:27 | disposition home or self-care (01) ==
LOC: JER 12:17 → OBSVTOIN 17:45 → INTOOBSV 17:45 → JERBED 17:45 → UNDOADMOB 17:45 → JERBED 20:17 → J4W 20:17 → JERBED 11-11 12:50
PROVIDERS: ADMIT Internal Medicine; ATTEND Internal Medicine
DX: R07.9 Chest pain, unspecified (principal); I10 Essential (primary) hypertension; E87.6 Hypokalemia; K21.9 Gastro-esophageal reflux disease without esophagitis
CPT/HCPCS: 36415; 71010-TC; 80048; 80053; 80061; 82550; 83721; 83735; 84100; 84443; 84484; 85025; 85027; 85610; 93005; 93010; 93306-TC; 99285-25; G0378

== ENCOUNTER 2020-08-15 04:46 | Day surgery (SDC) | payer OTHER ==
[2020-08-13 11:46] VITALS: BMI 30.4
[~2020-08-15 04:46] MED LIST: ACETAMINOPHEN 325 MG TABLET (FP) PO PRN; BSS (NA/CA/MG/K) BALANCED SALT SOLUTION OPHTH SOLN 15 ML BOTTLE OS ONE; CHONDROITIN SU A/HYALUR SOD 1 KIT IO ONE; CYCLOPENTOLATE HCL 1% OPHTH SOLN 2 ML BOTTLE OP SCH; EPINEPHrine/PF 1 MG/1 ML (1:1,000) AMPULE SQ ONE; LIDOCAINE HCL 1% PRESERVATIVE FREE - 30ML VIAL IO ONE; POVIDONE-IODINE 5% OPHTHALMIC PREP 30 ML SOLUTION OS ONE; TETRACAINE 0.5% OPHTH SOLN 2 ML BOTTLE TP ONE
[2020-08-15] MEDS ORDERED: CHONDROITIN SU A/HYALUR SOD 1 KIT ONE (07:17)
[2020-08-15] MEDS ORDERED: LIDOCAINE HCL/PF 1% SDV 5ML VIAL ONE (07:17)
[2020-08-15] MEDS ORDERED: POVIDONE-IODINE 5% OPHTHALMIC PREP 30 ML SOLUTION ONE (07:17)
[2020-08-15] MEDS ORDERED: TETRACAINE 0.5% OPHTH SOLN 2 ML BOTTLE ONE (07:17)
[2020-08-15] MEDS ORDERED: KETOROLAC TROMETHAMINE 0.5% EYE DROP 1 DROP DROPS ONE (08:58)
[2020-08-15] MEDS ORDERED: OFLOXACIN 0.3% OPHTHALMIC SOLUTION 5 ML BOTTLE ONE (08:58)
[2020-08-15] MEDS ORDERED: CYCLOPENTOLATE HCL 1% OPHTH SOLN 2 ML BOTTLE ONE (08:58)
[2020-08-15] MEDS ORDERED: TROPICAMIDE 1% OPHTH SOLN 15 ML BOTTLE ONE (08:58)
[2020-08-15] MEDS: PHENYLEPHRINE 2.5% OPHTH SOLN 15 ML BOTTLE OP SCH ×2 (09:15→09:20)
[2020-08-15] MEDS: TROPICAMIDE 1% OPHTH SOLN 15 ML BOTTLE OP SCH ×2 (09:15→09:20)
[2020-08-15] MEDS: KETOROLAC TROMETHAMINE 0.5% EYE DROP 1 DROP DROPS OP SCH ×2 (09:15→09:20)
[2020-08-15] MEDS: OFLOXACIN 0.3% OPHTHALMIC SOLUTION 5 ML BOTTLE OP SCH ×2 (09:15→09:20)
[2020-08-15] MEDS ORDERED: CYCLOPENTOLATE HCL 1% OPHTH SOLN 2 ML BOTTLE OS ONE (09:15)
[2020-08-15] MEDS ORDERED: MIDAZOLAM HCL 2 MG/2 ML SINGLE DOSE VIAL ONE (12:28)
[2020-08-15] MEDS ORDERED: TETRACAINE 0.5% OPHTH SOLN 2 ML BOTTLE TP ONE (12:36)
[2020-08-15] MEDS ORDERED: POVIDONE-IODINE 5% OPHTHALMIC PREP 30 ML SOLUTION OS ONE (12:37)
[2020-08-15] MEDS ORDERED: BSS (NA/CA/MG/K) BALANCED SALT SOLUTION OPHTH SOLN 15 ML BOTTLE OS ONE (12:43)
[2020-08-15] MEDS ORDERED: TRYPAN BLUE 0.5 ML DISP.SYRIN IO ONE (12:44)
[2020-08-15] MEDS ORDERED: CHONDROITIN SU A/HYALUR SOD 1 KIT IO ONE ×2 (12:44)
[2020-08-15] MEDS ORDERED: LIDOCAINE HCL 1% PRESERVATIVE FREE - 30ML VIAL IO ONE (12:44)
[2020-08-15] MEDS ORDERED: EPINEPHrine/PF 1 MG/1 ML (1:1,000) AMPULE SQ ONE (12:56)
[2020-08-15 14:07] VITALS: PULSE 67
[2020-08-15 14:10] VITALS: BP 141/87; TEMP 98.4
== END 2020-08-15 14:18 | disposition home or self-care (01) ==
LOC: JASU-SURG 04:46
PROVIDERS: ATTEND Ophthalmology
PROC: 08RK3JZ Replacement of Left Lens with Synthetic Substitute, Percutaneous Approach (ICD-10-PCS; principal; 2020-08-15 11:00)
DX: H26.8 Other specified cataract (principal); H21.542 Posterior synechiae (iris), left eye